=== PATIENT | female | born 1990 | race Caucasian/White ===

== ENCOUNTER 2017-12-08 11:06 | Inpatient (IN) | payer BC, OTHER ==
[~2017-12-08] VITALS: Ht 162.6 cm; Wt 62.8 kg
[2017-12-08] MEDS ORDERED: SODIUM CHLORIDE 0.9% 1,000 ML IV ONE (12:42)
[2017-12-08] MEDS ORDERED: LABETALOL 5MG/ML, 20ML IVPush ONE ×2 (13:00→14:30)
[2017-12-08] MEDS ORDERED: SODIUM CHLORIDE 0.9% 1,000ML IVBOLUS ONE (13:00)
[2017-12-08] MEDS ORDERED: ONDANSETRON 2MG/ML, 2ML IVPush ONE (13:00)
[2017-12-08] MEDS ORDERED: SODIUM CHLORIDE FLUSH 10ML SYR IVF ONE (13:00)
[2017-12-08] MEDS ORDERED: LABETALOL 5MG/ML, 20ML ONE ×3 (13:10→15:12)
[2017-12-08] MEDS ORDERED: ONDANSETRON 2MG/ML, 2ML ONE (13:11)
[2017-12-08 13:14] LABS: BASOPHILS # (AUTO) 0.02 x10^3/uL (0-0.1); BASOPHILS % (AUTO) 0 % (0-1); EOSINOPHILS # (AUTO) 0.01 x10^3/uL (0-0.4); EOSINOPHILS % (AUTO) 0 % (1-7); LYMPHOCYTES % (AUTO) 17 % (22-44); MD NO; MEAN CORPUSCULAR HEMOGLOBIN 29.3 pg (27.0-34.8); MEAN CORPUSCULAR HGB CONC 33.9 g/dL (32.4-35.8); MEAN CORPUSCULAR VOLUME 86.5 fL (80-100); MEAN PLATELET VOLUME 9.4 fL (7.4-10.4); MONOCYTES # (AUTO) 0.52 x10^3/uL (0.2-0.8); MONOCYTES % (AUTO) 7 % (2-9); NEUTROPHILS # (AUTO) 5.43 x10^3/uL (1.8-6.8); NEUTROPHILS % (AUTO) 76 % (42-75); PLATELET COUNT 185 x10^3/uL (130-400); RED BLOOD COUNT 5.05 x10^6/uL (3.82-5.3)
[2017-12-08] MEDS ORDERED: hydrALAzine 20 MG/ML, 1ML ONE ×2 (13:14→15:56)
[2017-12-08 13:21] LABS: ALANINE AMINOTRANSFERASE 103 U/L (12-78); ALBUMIN 4.1 g/dL (3.4-5.0); ANION GAP 13 mmol/L (5-15); CALCIUM 8.9 mg/dL (8.5-10.1); CHLORIDE 107 mmol/L (98-107)
[2017-12-08] MEDS ORDERED: hydrALAzine 20 MG/ML, 1ML IV ONE ×2 (13:30→16:00)
[2017-12-08 13:46] LABS: ALKALINE PHOSPHATASE 61 U/L (45-117); CREATININE 0.81 mg/dL (0.55-1.02); TOTAL PROTEIN 7.8 g/dL (6.4-8.2)
[2017-12-08] MEDS ORDERED: LABETALOL 5MG/ML, 20ML IVPush STA (13:53)
[2017-12-08 15:04] LABS: CULTURE INDICATED? YES; MICROSCOPIC INDICATED
[2017-12-08] MEDS ORDERED: CEFTRIAXONE PMX 1GM/50ML 50 ML ONE (15:56)
[2017-12-08] MEDS ORDERED: CEFTRIAXONE PMX 1GM/50ML 50 ML IV ONE (16:00)
[2017-12-08] MEDS: CEFTRIAXONE PMX 1GM/50ML 50 ML IV SCH (16:30)
[2017-12-08] MEDS ORDERED: NACL IV SCH (17:00)
[2017-12-08] MEDS ORDERED: MVI ADULT IV SCH (17:00)
[2017-12-08] MEDS ORDERED: D5 IV SCH (17:00)
[2017-12-08] MEDS ORDERED: SODIUM CHLORIDE FLUSH 10ML SYR IVF PRN (17:00)
[2017-12-08] MEDS ORDERED: METOPROLOL TARTRATE 25 MG TABLET PO SCH (18:00)
[2017-12-08 18:41] VITALS: BP 183/116
[2017-12-08] MEDS: LABETALOL 5MG/ML, 20ML IVPush PRN (18:46)
[2017-12-08] MEDS ORDERED: THIAMINE 100MG TABLET PO SCH (18:50)
[2017-12-08 19:35] VITALS: BP 164/94
[2017-12-08] MEDS: FOLIC ACID IV SCH (20:05)
[2017-12-08] MEDS: POTASSIUM CHLORIDE 40 MEQ in SODIUM CHLORIDE 0.9% 1,000 ML IV SCH (20:05)
[2017-12-08] MEDS: D5 IV SCH (20:05)
[2017-12-08] MEDS: MVI ADULT IV SCH (20:05)
[2017-12-08] MEDS: NACL IV SCH (20:05)
[2017-12-08] MEDS: PYRIDOXINE 25MG TABLET PO SCH (20:21)
[2017-12-08] MEDS: DOXYLAMINE 25MG TABLET PO SCH (21:00)
[2017-12-08] MEDS: THIAMINE 100MG TABLET PO SCH (21:11)
[2017-12-08 21:14] VITALS: BP 153/87
[2017-12-09] VITALS (11 sets, daily range): BP systolic 148–179; BP diastolic 88–112
[2017-12-09] MEDS: PYRIDOXINE 25MG TABLET PO SCH ×3 (05:13→21:47)
[2017-12-09] MEDS: POTASSIUM CHLORIDE 40 MEQ in SODIUM CHLORIDE 0.9% 1,000 ML IV SCH (05:14)
[2017-12-09 05:53] LABS: CHLORIDE 117 mmol/L (98-107)
[2017-12-09 06:00] LABS: BASOPHILS # (AUTO) 0.02 x10^3/uL (0-0.1); BASOPHILS % (AUTO) 0 % (0-1); EOSINOPHILS % (AUTO) 0 % (1-7); LYMPHOCYTES # (AUTO) 0.95 x10^3/uL (1-3.4); LYMPHOCYTES % (AUTO) 14 % (22-44); MD NO; MEAN CORPUSCULAR HEMOGLOBIN 29.7 pg (27.0-34.8); MEAN CORPUSCULAR HGB CONC 34.4 g/dL (32.4-35.8); MEAN CORPUSCULAR VOLUME 86.1 fL (80-100); MEAN PLATELET VOLUME 9.5 fL (7.4-10.4); MONOCYTES # (AUTO) 0.43 x10^3/uL (0.2-0.8); MONOCYTES % (AUTO) 6 % (2-9); NEUTROPHILS % (AUTO) 80 % (42-75); PLATELET COUNT 141 x10^3/uL (130-400); RED BLOOD COUNT 3.88 x10^6/uL (3.82-5.3); RED CELL DISTRIBUTION WIDTH 13.1 % (9.6-15.2)
[2017-12-09 06:15] LABS: ALANINE AMINOTRANSFERASE 89 U/L (12-78); ALKALINE PHOSPHATASE 46 U/L (45-117); ANION GAP 10 mmol/L (5-15); BILIRUBIN,TOTAL 0.8 mg/dL (0.2-1.0); CALCIUM 7.6 mg/dL (8.5-10.1); CREATININE 0.61 mg/dL (0.55-1.02)
[2017-12-09] MEDS: THIAMINE 100MG TABLET PO SCH (08:23)
[2017-12-09] MEDS: LABETALOL 5MG/ML, 20ML IVPush PRN ×2 (08:24→13:06)
[2017-12-09] MEDS ORDERED: LABETALOL 100 MG TABLET ONE (09:52)
[2017-12-09] MEDS: LABETALOL 100 MG TABLET PO SCH ×2 (09:53→21:47)
[2017-12-09] MEDS: D5%-0.45NACL+KCL 40MEQ 1,000 ML IV SCH (12:38)
[2017-12-09] MEDS ORDERED: LABETALOL 5MG/ML, 20ML IVPush PRN (14:00)
[2017-12-09] MEDS: CEFTRIAXONE PMX 1GM/50ML 50 ML IV SCH (16:38)
[2017-12-09] MEDS: DOXYLAMINE 25MG TABLET PO SCH (21:00)
[2017-12-09] MEDS: D5 IV SCH (22:03)
[2017-12-09] MEDS: MVI ADULT IV SCH (22:03)
[2017-12-09] MEDS: FOLIC ACID IV SCH (22:03)
[2017-12-09] MEDS: NACL IV SCH (22:03)
[2017-12-10] VITALS (12 sets, daily range): BP systolic 96–182; BP diastolic 60–123
[2017-12-10] MEDS: D5%-0.45NACL+KCL 40MEQ 1,000 ML IV SCH ×2 (00:13→07:54)
[2017-12-10] MEDS: PYRIDOXINE 25MG TABLET PO SCH ×3 (04:50→21:16)
[2017-12-10 05:11] LABS: AMPHETAMINE SCREEN, URINE Negative (Negative); BARBITURATE SCREEN, URINE Negative (Negative); BENZODIAZEPINE SCREEN, URINE Negative (Negative); CANNABINOID SCREEN, URINE Negative (Negative); COCAINE SCREEN, URINE Negative (Negative); METHADONE SCREEN, URINE Negative (Negative); OPIATE SCREEN, URINE Negative (Negative)
[2017-12-10 05:56] LABS: ALBUMIN 2.9 g/dL (3.4-5.0); ANION GAP 9 mmol/L (5-15); CALCIUM 7.6 mg/dL (8.5-10.1); CHLORIDE 113 mmol/L (98-107)
[2017-12-10 06:30] LABS: ALANINE AMINOTRANSFERASE 78 U/L (12-78); ALKALINE PHOSPHATASE 45 U/L (45-117); BILIRUBIN,TOTAL 0.5 mg/dL (0.2-1.0); FREE T4 (FREE THYROXINE) 1.24 ng/dL (0.76-1.46); THYROID STIMULATING HORMONE 0.529 mIU/L (0.358-3.740); TOTAL PROTEIN 5.9 g/dL (6.4-8.2)
[2017-12-10] MEDS: LABETALOL 100 MG TABLET PO SCH (07:52)
[2017-12-10] MEDS: THIAMINE 100MG TABLET PO SCH (07:52)
[2017-12-10] MEDS: POTASSIUM CHLORIDE 20 MEQ TAB.ER.PRT PO SCH ×3 (09:27→17:00)
[2017-12-10] MEDS: CEFTRIAXONE PMX 1GM/50ML 50 ML IV SCH (16:35)
[2017-12-10] MEDS ORDERED: LABETALOL 100 MG TABLET ONE (17:38)
[2017-12-10] MEDS: LABETALOL 200 MG TABLET PO SCH (17:38)
[2017-12-10] MEDS: DOXYLAMINE 25MG TABLET PO SCH (21:00)
[2017-12-10] MEDS ORDERED: POTASSIUM CHLORIDE 20 MEQ TAB.ER.PRT PO ONE (23:00)
[2017-12-10] MEDS: D5 IV SCH (23:11)
[2017-12-10] MEDS: FOLIC ACID IV SCH (23:11)
[2017-12-10] MEDS: NACL IV SCH (23:11)
[2017-12-10] MEDS: MVI ADULT IV SCH (23:11)
[2017-12-11 01:28] VITALS: BP 135/87
[2017-12-11] MEDS: PYRIDOXINE 25MG TABLET PO SCH ×2 (06:47→12:47)
[2017-12-11 07:42] VITALS: BP 152/82
[2017-12-11] MEDS ORDERED: LABETALOL 100 MG TABLET ONE (08:32)
[2017-12-11] MEDS: LABETALOL 200 MG TABLET PO SCH (08:40)
[2017-12-11] MEDS: THIAMINE 100MG TABLET PO SCH (08:40)
[2017-12-11 10:37] VITALS: BP 156/96
[2017-12-11 13:05] VITALS: BP 138/98
[2017-12-11] MEDS ORDERED: LABE200T3 PO (15:20)
[2017-12-11] MEDS ORDERED: CLON0.1T12 PO (15:20)
[2017-12-11] MEDS ORDERED: CEFP100T PO (15:33)
== END 2017-12-11 16:14 | disposition home or self-care (01) | DRG 781 ==
LOC: ED 14:39 → EDIP 16:33 → 5SO 18:38
PROVIDERS: ADMIT Hospitalist; ATTEND Hospitalist
DX: O21.1 Hyperemesis gravidarum with metabolic disturbance (principal); O16.2 Unspecified maternal hypertension, second trimester; O23.12 Infections of bladder in pregnancy, second trimester; O99.282 Endocrine, nutritional and metabolic diseases complicating pregnancy, second trimester; E86.0 Dehydration; Z82.49 Family history of ischemic heart disease and other diseases of the circulatory system; Z3A.21 21 weeks gestation of pregnancy
CPT/HCPCS: 36415; 71045; 76700; 76801; 80053; 80074; 80307; 81001; 84439; 84443; 84702; 85025; 87086; 93005; 93306; 93975; 96361; 96365; 96375; 96376; J0696; J2405; J3480; J7042; J0360; J7030

== ENCOUNTER 2018-04-23 17:34 | Inpatient (IN) | payer OTHER ==
[~2018-04-23] VITALS: Ht 162.6 cm; Wt 67.5 kg
[~2018-04-23 17:34] MED LIST: CEFP100T PO; CLON0.1T12 PO; LABE200T3 PO
[2018-04-23] MEDS ORDERED: PREN1TAB60 PO (17:47)
[2018-04-23] MEDS ORDERED: LABE300T PO (17:48)
[2018-04-23 17:49] VITALS: BP 169/112
[2018-04-23] MEDS ORDERED: NIFE20CA PO (17:49)
[2018-04-23] MEDS ORDERED: MAGNESIUM SULF. PMX 20GM/500ML 500 ML IV SCH (18:19)
[2018-04-23] MEDS ORDERED: LACTATED RINGERS 1,000 ML IV PRN (18:19)
[2018-04-23] MEDS ORDERED: MAGNESIUM SULF. PMX 20GM/500ML 500 ML IV ONE (18:19)
[2018-04-23] MEDS ORDERED: LABETALOL 5MG/ML 40ML VIAL IVPush ONE (18:30)
[2018-04-23] MEDS ORDERED: MAGNESIUM SULFATE PMX 4GM/100M 100 ML IVPB ONE (18:30)
[2018-04-23] MEDS ORDERED: LABETALOL 20 MG/4 ML IVPush ONE (18:30)
[2018-04-23] MEDS ORDERED: BETAMETHASONE 6 MG/ML, 5ML IM ONE (18:31)
[2018-04-23] MEDS ORDERED: LABETALOL 5MG/ML, 20ML ONE (18:31)
[2018-04-23 18:40] LABS: BASOPHILS # (AUTO) 0.03 x10^3/uL (0-0.1); BASOPHILS % (AUTO) 0 % (0-1); EOSINOPHILS % (AUTO) 1 % (1-7); LYMPHOCYTES # (AUTO) 1.59 x10^3/uL (1-3.4); LYMPHOCYTES % (AUTO) 16 % (22-44); MD NO; MEAN CORPUSCULAR HGB CONC 33.7 g/dL (32.4-35.8); MEAN CORPUSCULAR VOLUME 89.1 fL (80-100); MEAN PLATELET VOLUME 8.1 fL (7.4-10.4); MONOCYTES # (AUTO) 0.81 x10^3/uL (0.2-0.8); MONOCYTES % (AUTO) 8 % (2-9); NEUTROPHILS # (AUTO) 7.13 x10^3/uL (1.8-6.8); NEUTROPHILS % (AUTO) 74 % (42-75); PLATELET COUNT 221 x10^3/uL (130-400); RED BLOOD COUNT 4.19 x10^6/uL (3.82-5.3); RED CELL DISTRIBUTION WIDTH 13.9 % (9.6-15.2)
[2018-04-23 18:46] LABS: MICROSCOPIC AUTO
[2018-04-23 18:55] LABS: CREATININE,URINE RANDOM 60.7 mg/dL
[2018-04-23] MEDS: BETAMETHASONE 6 MG/ML, 5ML IM SCH (18:55)
[2018-04-23 18:56] LABS: ALANINE AMINOTRANSFERASE 30 U/L (12-78); ALBUMIN 2.8 g/dL (3.4-5.0); ANION GAP 8 mmol/L (5-15); CALCIUM 8.7 mg/dL (8.5-10.1); CHLORIDE 106 mmol/L (98-107); CREATININE 0.73 mg/dL (0.55-1.02)
[2018-04-23 18:57] LABS: BILIRUBIN, DIRECT < 0.1 mg/dL (0.1-0.2)
[2018-04-23 18:58] LABS: ALKALINE PHOSPHATASE 118 U/L (45-117); BILIRUBIN,TOTAL 0.2 mg/dL (0.2-1.0); TOTAL PROTEIN 6.8 g/dL (6.4-8.2)
[2018-04-23] MEDS ORDERED: hydrALAzine 20 MG/ML, 1ML IVPush ONE (19:00)
[2018-04-23] MEDS ORDERED: LABETALOL 5MG/ML, 20ML IVPush ONE ×2 (19:00)
[2018-04-23] MEDS ORDERED: hydrALAzine 20 MG/ML, 1ML ONE (19:46)
[2018-04-23] MEDS ORDERED: POTASSIUM CHLORIDE 10% 20 MEQ/15 ML UDC PO ONE (21:30)
[2018-04-23] MEDS ORDERED: LABETALOL 200 MG TABLET ONE (22:27)
[2018-04-23] MEDS: LABETALOL 200 MG TABLET PO SCH (22:29)
[2018-04-24] MEDS ORDERED: POTASSIUM CHLORIDE 10% 20 MEQ/15 ML UDC PO ONE ×2 (02:00→19:30)
[2018-04-24 05:31] LABS: MEAN CORPUSCULAR HEMOGLOBIN 29.9 pg (27.0-34.8); MEAN CORPUSCULAR HGB CONC 33.2 g/dL (32.4-35.8); MEAN CORPUSCULAR VOLUME 90.2 fL (80-100); MEAN PLATELET VOLUME 8.6 fL (7.4-10.4); PLATELET COUNT 233 x10^3/uL (130-400); RED BLOOD COUNT 3.93 x10^6/uL (3.82-5.3)
[2018-04-24] MEDS ORDERED: LABETALOL 200 MG TABLET ONE ×3 (05:31→22:03)
[2018-04-24 05:38] LABS: CHLORIDE 108 mmol/L (98-107)
[2018-04-24 05:45] LABS: ALANINE AMINOTRANSFERASE 31 U/L (12-78); ALBUMIN 2.8 g/dL (3.4-5.0); ALKALINE PHOSPHATASE 113 U/L (45-117); ANION GAP 9 mmol/L (5-15); BILIRUBIN,TOTAL 0.4 mg/dL (0.2-1.0); CALCIUM 9.2 mg/dL (8.5-10.1); CREATININE 0.79 mg/dL (0.55-1.02); TOTAL PROTEIN 6.6 g/dL (6.4-8.2)
[2018-04-24] MEDS: LABETALOL 200 MG TABLET PO SCH ×3 (06:02→22:06)
[2018-04-24 06:16] LABS: BASOPHILS # (AUTO) 0.01 x10^3/uL (0-0.1); BASOPHILS % (AUTO) 0 % (0-1); EOSINOPHILS % (AUTO) 0 % (1-7); LYMPHOCYTES # (AUTO) 0.99 x10^3/uL (1-3.4); LYMPHOCYTES % (AUTO) 8 % (22-44); MD SCAN; MONOCYTES # (AUTO) 0.15 x10^3/uL (0.2-0.8); MONOCYTES % (AUTO) 1 % (2-9); NEUTROPHILS # (AUTO) 11.58 x10^3/uL (1.8-6.8); NEUTROPHILS % (AUTO) 91 % (42-75)
[2018-04-24] MEDS ORDERED: DOCUSATE 100 MG CAPSULE ONE (08:46)
[2018-04-24] MEDS ORDERED: PRENATAL VIT/IRON/FA 1 EACH TABLET ONE (08:46)
[2018-04-24] MEDS: DOCUSATE 100 MG CAPSULE PO PRN (08:52)
[2018-04-24] MEDS: SODIUM CHLORIDE FLUSH 3ML SYRINGE IVF SCH ×2 (08:52→22:05)
[2018-04-24] MEDS: PRENATAL VIT/IRON/FA 1 EACH TABLET PO SCH (08:52)
[2018-04-24] MEDS: niFEDipine ER 30 MG TABLET.ER PO SCH (08:52)
[2018-04-24] MEDS: BETAMETHASONE 6 MG/ML, 5ML IM SCH (18:48)
[2018-04-24 22:02] LABS: CREATININE CLEARANCE,URINE 115.1 (70.0-140.0)
[2018-04-25 05:43] LABS: CHLORIDE 109 mmol/L (98-107)
[2018-04-25 05:49] LABS: MEAN CORPUSCULAR HEMOGLOBIN 30.2 pg (27.0-34.8); MEAN CORPUSCULAR HGB CONC 33.7 g/dL (32.4-35.8); MEAN CORPUSCULAR VOLUME 89.7 fL (80-100); MEAN PLATELET VOLUME 8.9 fL (7.4-10.4); PLATELET COUNT 240 x10^3/uL (130-400)
[2018-04-25 06:00] LABS: ALANINE AMINOTRANSFERASE 28 U/L (12-78); ALBUMIN 2.5 g/dL (3.4-5.0); ALKALINE PHOSPHATASE 96 U/L (45-117); ANION GAP 11 mmol/L (5-15); BILIRUBIN,TOTAL 0.3 mg/dL (0.2-1.0); CALCIUM 8.3 mg/dL (8.5-10.1); CREATININE 0.77 mg/dL (0.55-1.02)
[2018-04-25] MEDS ORDERED: LABETALOL 200 MG TABLET ONE ×3 (06:10→21:44)
[2018-04-25] MEDS: LABETALOL 200 MG TABLET PO SCH ×3 (06:13→22:01)
[2018-04-25 06:19] LABS: MD YES
[2018-04-25 06:20] LABS: <PLATELET ESTIMATE> ADEQUATE; <PLT MORPHOLOGY> NORMAL PLT MORPH; <RBC MORPHOLOGY> NORMAL; BAND#(MANUAL) 0.38 x10^3/uL; BANDS%(MANUAL) 2 % (0-7); LYMPH#(MANUAL) 0.75 x10^3/uL (1-3.4); LYMPHS% (MANUAL) 4 % (22-44); METAMYELOCYTES# (MANUAL) 0.38 x10^3/uL (0-0); METAMYELOCYTES% (MANUAL) 2 % (0-1); MONOS#(MANUAL) 0.19 x10^3/uL (0.3-2.7); MONOS% (MANUAL) 1 % (2-9); MYELOCYTES# (MANUAL) 0.19 x10^3/uL (0-0); MYELOCYTES% (MANUAL) 1 % (0-0); SEG#(MANUAL) 16.92 x10^3/uL (1.8-6.8); SEGS% (MANUAL) 90 % (42-75)
[2018-04-25 07:39] VITALS: BP 157/91
[2018-04-25] MEDS ORDERED: DOCUSATE 100 MG CAPSULE ONE (08:50)
[2018-04-25] MEDS ORDERED: PRENATAL VIT/IRON/FA 1 EACH TABLET ONE (08:50)
[2018-04-25] MEDS: SODIUM CHLORIDE FLUSH 3ML SYRINGE IVF SCH ×2 (09:00→21:37)
[2018-04-25] MEDS: niFEDipine ER 30 MG TABLET.ER PO SCH (09:22)
[2018-04-25] MEDS: DOCUSATE 100 MG CAPSULE PO PRN (09:22)
[2018-04-25] MEDS: PRENATAL VIT/IRON/FA 1 EACH TABLET PO SCH (09:22)
[2018-04-25] MEDS ORDERED: INSULIN NPH HUMAN 100 UNIT/ML, 3ML VIAL SQ-INSULIN ONE (22:00)
[2018-04-26] MEDS ORDERED: LABETALOL 200 MG TABLET ONE ×3 (05:50→21:51)
[2018-04-26] MEDS: LABETALOL 200 MG TABLET PO SCH ×3 (06:16→21:52)
[2018-04-26] MEDS ORDERED: niFEDipine ER 60 MG TABLET.ER PO ONE (08:59)
[2018-04-26] MEDS ORDERED: niFEDipine ER 60 MG TABLET.ER PO SCH (09:00)
[2018-04-26] MEDS ORDERED: PRENATAL VIT/IRON/FA 1 EACH TABLET ONE (09:03)
[2018-04-26] MEDS ORDERED: DOCUSATE 100 MG CAPSULE ONE (09:03)
[2018-04-26] MEDS: SODIUM CHLORIDE FLUSH 3ML SYRINGE IVF SCH ×2 (09:07→21:53)
[2018-04-26] MEDS: PRENATAL VIT/IRON/FA 1 EACH TABLET PO SCH (09:07)
[2018-04-26] MEDS: DOCUSATE 100 MG CAPSULE PO PRN (09:07)
[2018-04-26] MEDS: LACTATED RINGERS 1,000 ML IV SCH (16:57)
[2018-04-26 22:51] VITALS: BP 173/102
[2018-04-26 23:30] VITALS: BP 129/67
[2018-04-27] MEDS: LACTATED RINGERS 1,000 ML IV SCH (01:04)
[2018-04-27] MEDS: LABETALOL 200 MG TABLET PO SCH ×2 (05:38→14:00)
[2018-04-27 05:52] LABS: BASOPHILS # (AUTO) 0.02 x10^3/uL (0-0.1); BASOPHILS % (AUTO) 0 % (0-1); EOSINOPHILS # (AUTO) 0.02 x10^3/uL (0-0.4); EOSINOPHILS % (AUTO) 0 % (1-7); LYMPHOCYTES # (AUTO) 1.35 x10^3/uL (1-3.4); LYMPHOCYTES % (AUTO) 13 % (22-44); MD NO; MEAN CORPUSCULAR HEMOGLOBIN 30.1 pg (27.0-34.8); MEAN CORPUSCULAR HGB CONC 33.7 g/dL (32.4-35.8); MEAN CORPUSCULAR VOLUME 89.4 fL (80-100); MEAN PLATELET VOLUME 8.1 fL (7.4-10.4); MONOCYTES # (AUTO) 0.75 x10^3/uL (0.2-0.8); MONOCYTES % (AUTO) 7 % (2-9); NEUTROPHILS # (AUTO) 8.41 x10^3/uL (1.8-6.8); NEUTROPHILS % (AUTO) 80 % (42-75); PLATELET COUNT 164 x10^3/uL (130-400); RED BLOOD COUNT 3.48 x10^6/uL (3.82-5.3); RED CELL DISTRIBUTION WIDTH 13.9 % (9.6-15.2)
[2018-04-27 06:03] LABS: ALBUMIN 2.2 g/dL (3.4-5.0); ANION GAP 7 mmol/L (5-15); CALCIUM 7.6 mg/dL (8.5-10.1); CHLORIDE 108 mmol/L (98-107)
[2018-04-27 06:07] LABS: ALANINE AMINOTRANSFERASE 30 U/L (12-78); ALKALINE PHOSPHATASE 87 U/L (45-117); BILIRUBIN,TOTAL 0.3 mg/dL (0.2-1.0); CREATININE 0.64 mg/dL (0.55-1.02); TOTAL PROTEIN 5.3 g/dL (6.4-8.2)
[2018-04-27] MEDS ORDERED: hydrALAzine 20 MG/ML, 1ML ONE ×2 (07:12→08:11)
[2018-04-27] MEDS ORDERED: hydrALAzine 20 MG/ML, 1ML IV ONE ×2 (07:30→08:30)
[2018-04-27] MEDS ORDERED: SODIUM CITRATE/CITRIC ACID 30 ML UDC ONE (07:33)
[2018-04-27] MEDS ORDERED: METOCLOPRAMIDE 5 MG/ML, 2ML ONE (07:33)
[2018-04-27] MEDS ORDERED: MAGNESIUM SULF. PMX 20GM/500ML 500 ML IV SCH (08:11)
[2018-04-27] MEDS ORDERED: OXYTOCIN 30U/ 0.9% NaCL 500ML 500 ML IV SCH ×2 (08:11→12:09)
[2018-04-27] MEDS ORDERED: LACTATED RINGERS 1,000 ML IV SCH ×4 (08:11→12:09)
[2018-04-27] MEDS ORDERED: LACTATED RINGERS 1,000 ML IVBOLUS ONE (08:30)
[2018-04-27] MEDS ORDERED: MAGNESIUM SULFATE PMX 4GM/100M 100 ML IVPB ONE (08:30)
[2018-04-27] MEDS ORDERED: SODIUM CITRATE/CITRIC ACID 30 ML UDC PO ONE ×2 (08:30)
[2018-04-27] MEDS ORDERED: METOCLOPRAMIDE 5 MG/ML, 2ML IV ONE (08:30)
[2018-04-27] MEDS ORDERED: METOCLOPRAMIDE 5 MG/ML, 2ML IVPush ONE (08:30)
[2018-04-27] MEDS ORDERED: MAGNESIUM SULFATE PMX 2GM/50ML 50 ML IVPB ONE (08:30)
[2018-04-27] MEDS ORDERED: NEWBORN KIT ONE (08:31)
[2018-04-27] MEDS ORDERED: niFEDipine ER 60 MG TABLET.ER PO ONE (08:59)
[2018-04-27] MEDS ORDERED: niFEDipine ER 30 MG TABLET.ER ONE (08:59)
[2018-04-27] MEDS ORDERED: niFEDipine ER 60 MG TABLET.ER PO SCH (09:00)
[2018-04-27] MEDS: PRENATAL VIT/IRON/FA 1 EACH TABLET PO SCH (09:00)
[2018-04-27] MEDS ORDERED: OXYTOCIN 30U/ 0.9% NaCL 500ML 500 ML ONE (09:24)
[2018-04-27] MEDS ORDERED: morphine SULFATE/PF 0.5 MG/ML, 10ML ONE (10:06)
[2018-04-27] MEDS ORDERED: PHENYLEPHRINE 10 MG/ML ONE (11:28)
[2018-04-27] MEDS ORDERED: EPHEDRINE 50 MG/ML, 1ML ONE (11:28)
[2018-04-27] MEDS ORDERED: OXYTOCIN 10 UNITS/ML, 1ML ONE (11:28)
[2018-04-27] MEDS ORDERED: CEFAZOLIN 1,000 MG ONE (11:28)
[2018-04-27] MEDS ORDERED: WATER-INJECTION,STERILE 10 ML IV ONE (11:28)
[2018-04-27] MEDS ORDERED: ONDANSETRON 2MG/ML, 2ML ONE (11:28)
[2018-04-27] MEDS ORDERED: MIDAZOLAM 1 MG/ML, 2ML ONE (11:38)
[2018-04-27] MEDS ORDERED: KETOROLAC 30 MG/1 ML ONE (12:01)
[2018-04-27] MEDS ORDERED: OXYcodone 5 MG/5 ML ORAL.SOL UDC ONE (12:23)
[2018-04-27] MEDS ORDERED: MISOPROSTOL 200 MCG TABLET PR PRN (12:30)
[2018-04-27] MEDS ORDERED: ONDANSETRON 2MG/ML, 2ML IV PRN (12:30)
[2018-04-27] MEDS ORDERED: BISACODYL 10 MG SUPP PR PRN (12:30)
[2018-04-27] MEDS ORDERED: morphine SULFATE 10 MG/ML, 1ML IVPush PRN ×2 (12:30)
[2018-04-27] MEDS ORDERED: CALCIUM CARBONATE 500 MG TAB.CHEW PO PRN (12:30)
[2018-04-27] MEDS ORDERED: SIMETHICONE 80 MG CHEW TAB PO PRN (12:30)
[2018-04-27] MEDS ORDERED: OXYcodone 5 MG/5 ML ORAL.SOL UDC PO PRN ×2 (12:30)
[2018-04-27] MEDS ORDERED: MAGNESIUM SULF. PMX 20GM/500ML 500 ML IV ONE (13:08)
[2018-04-27] MEDS ORDERED: ACETAMINOPHEN 325 MG TABLET ONE ×2 (15:09→20:56)
[2018-04-27] MEDS: ACETAMINOPHEN 325 MG TABLET PO SCH ×2 (15:15→19:00)
[2018-04-27] MEDS ORDERED: OXYcodone IR 5MG TABLET ONE ×2 (17:01→20:52)
[2018-04-27] MEDS: OXYcodone IR 5MG TABLET PO PRN ×2 (17:05→21:00)
[2018-04-27 19:21] LABS: BASOPHILS % (AUTO) 0 % (0-1); EOSINOPHILS # (AUTO) 0.02 x10^3/uL (0-0.4); EOSINOPHILS % (AUTO) 0 % (1-7); LYMPHOCYTES # (AUTO) 1.11 x10^3/uL (1-3.4); LYMPHOCYTES % (AUTO) 9 % (22-44); MD NO; MEAN CORPUSCULAR HEMOGLOBIN 30.1 pg (27.0-34.8); MEAN CORPUSCULAR HGB CONC 33.5 g/dL (32.4-35.8); MEAN CORPUSCULAR VOLUME 89.9 fL (80-100); MEAN PLATELET VOLUME 8.2 fL (7.4-10.4); MONOCYTES # (AUTO) 0.77 x10^3/uL (0.2-0.8); MONOCYTES % (AUTO) 6 % (2-9); NEUTROPHILS # (AUTO) 10.63 x10^3/uL (1.8-6.8); NEUTROPHILS % (AUTO) 85 % (42-75); PLATELET COUNT 152 x10^3/uL (130-400); RED BLOOD COUNT 3.56 x10^6/uL (3.82-5.3)
[2018-04-28] MEDS ORDERED: OXYcodone IR 5MG TABLET ONE ×3 (01:30→11:58)
[2018-04-28] MEDS ORDERED: MAGNESIUM SULF. PMX 20GM/500ML 500 ML IV ONE (01:30)
[2018-04-28] MEDS: OXYcodone IR 5MG TABLET PO PRN ×3 (01:40→12:00)
[2018-04-28] MEDS ORDERED: LABETALOL 100 MG TABLET ONE ×3 (04:42→16:54)
[2018-04-28] MEDS ORDERED: ACETAMINOPHEN 325 MG TABLET ONE ×2 (05:00→11:58)
[2018-04-28] MEDS: ACETAMINOPHEN 325 MG TABLET PO SCH ×3 (05:03→18:30)
[2018-04-28] MEDS ORDERED: LABETALOL 300 MG TABLET PO SCH (06:00)
[2018-04-28 06:24] LABS: BASOPHILS # (AUTO) 0.03 x10^3/uL (0-0.1); BASOPHILS % (AUTO) 0 % (0-1); EOSINOPHILS # (AUTO) 0.02 x10^3/uL (0-0.4); EOSINOPHILS % (AUTO) 0 % (1-7); LYMPHOCYTES # (AUTO) 1.06 x10^3/uL (1-3.4); LYMPHOCYTES % (AUTO) 10 % (22-44); MD NO; MEAN CORPUSCULAR HEMOGLOBIN 30.8 pg (27.0-34.8); MEAN CORPUSCULAR HGB CONC 34.2 g/dL (32.4-35.8); MEAN PLATELET VOLUME 8.6 fL (7.4-10.4); MONOCYTES # (AUTO) 0.61 x10^3/uL (0.2-0.8); MONOCYTES % (AUTO) 6 % (2-9); NEUTROPHILS # (AUTO) 9.02 x10^3/uL (1.8-6.8); NEUTROPHILS % (AUTO) 84 % (42-75); PLATELET COUNT 163 x10^3/uL (130-400); RED BLOOD COUNT 3.43 x10^6/uL (3.82-5.3); RED CELL DISTRIBUTION WIDTH 13.9 % (9.6-15.2)
[2018-04-28 06:30] LABS: CHLORIDE 106 mmol/L (98-107)
[2018-04-28 06:31] LABS: ALANINE AMINOTRANSFERASE 24 U/L (12-78); ANION GAP 7 mmol/L (5-15); CALCIUM 6.2 mg/dL (8.5-10.1)
[2018-04-28 06:33] LABS: ALKALINE PHOSPHATASE 84 U/L (45-117); BILIRUBIN,TOTAL 0.1 mg/dL (0.2-1.0); CREATININE 0.48 mg/dL (0.55-1.02)
[2018-04-28] MEDS ORDERED: PRENATAL VIT/IRON/FA 1 EACH TABLET ONE (08:19)
[2018-04-28] MEDS ORDERED: niFEDipine ER 30 MG TABLET.ER ONE ×2 (08:19→19:07)
[2018-04-28] MEDS: PRENATAL VIT/IRON/FA 1 EACH TABLET PO SCH (08:58)
[2018-04-28] MEDS: niFEDipine ER 30 MG TABLET.ER PO SCH ×2 (08:58→19:10)
[2018-04-28] MEDS ORDERED: hydrALAzine 20 MG/ML, 1ML ONE (12:25)
[2018-04-28] MEDS ORDERED: hydrALAzine 20 MG/ML, 1ML IV ONE (12:30)
[2018-04-28] MEDS ORDERED: OXYcodone/APAP 5/325MG TABLET ONE ×3 (15:43→20:29)
[2018-04-28] MEDS: OXYcodone/APAP 5/325MG TABLET PO PRN ×2 (15:50→20:34)
[2018-04-28] MEDS ORDERED: IBUPROFEN 600 MG TABLET ONE (20:25)
[2018-04-28] MEDS ORDERED: DOCUSATE 100 MG CAPSULE ONE (20:36)
[2018-04-28] MEDS: DOCUSATE 100 MG CAPSULE PO PRN (20:37)
[2018-04-28] MEDS ORDERED: morphine SULFATE 10 MG/ML, 1ML ONE (21:28)
[2018-04-28] MEDS ORDERED: KETOROLAC 30 MG/1 ML ONE (21:28)
[2018-04-28] MEDS ORDERED: KETOROLAC 30 MG/1 ML IM SCH (21:30)
[2018-04-29] MEDS ORDERED: OXYcodone/APAP 5/325MG TABLET ONE ×2 (00:25→05:16)
[2018-04-29] MEDS: ACETAMINOPHEN 325 MG TABLET PO SCH ×4 (00:30→20:14)
[2018-04-29] MEDS ORDERED: ACETAMINOPHEN 325 MG TABLET ONE (05:16)
[2018-04-29] MEDS: OXYcodone/APAP 5/325MG TABLET PO PRN (05:18)
[2018-04-29] MEDS ORDERED: LABETALOL 200 MG TABLET ONE (07:57)
[2018-04-29] MEDS ORDERED: PRENATAL VIT/IRON/FA 1 EACH TABLET ONE (07:58)
[2018-04-29] MEDS ORDERED: DOCUSATE 100 MG CAPSULE ONE (07:58)
[2018-04-29] MEDS ORDERED: LABETALOL 300 MG TABLET PO SCH (08:00)
[2018-04-29] MEDS: PRENATAL VIT/IRON/FA 1 EACH TABLET PO SCH (08:09)
[2018-04-29 08:10] VITALS: BP 138/86
[2018-04-29] MEDS: DOCUSATE 100 MG CAPSULE PO PRN (08:10)
[2018-04-29] MEDS: LABETALOL 200 MG TABLET PO SCH ×2 (08:10→12:40)
[2018-04-29] MEDS ORDERED: niFEDipine ER 60 MG TABLET.ER PO ONE (09:07)
[2018-04-29] MEDS: niFEDipine ER 30 MG TABLET.ER PO SCH (09:13)
[2018-04-29] MEDS ORDERED: OXYcodone IR 5MG TABLET ONE (09:33)
[2018-04-29] MEDS: OXYcodone IR 5MG TABLET PO PRN ×4 (09:36→21:30)
[2018-04-29 12:33] VITALS: BP 123/67
[2018-04-29] MEDS ORDERED: LABETALOL 100 MG TABLET PO SCH (17:00)
[2018-04-29 17:25] VITALS: BP 126/76
[2018-04-29 20:00] VITALS: BP 140/82
[2018-04-30] VITALS (7 sets, daily range): BP systolic 127–192; BP diastolic 78–119
[2018-04-30] MEDS: ACETAMINOPHEN 325 MG TABLET PO SCH ×4 (02:01→21:31)
[2018-04-30] MEDS: OXYcodone IR 5MG TABLET PO PRN ×4 (02:01→18:43)
[2018-04-30] MEDS: LABETALOL 200 MG TABLET PO SCH ×3 (06:30→21:32)
[2018-04-30] MEDS: PRENATAL VIT/IRON/FA 1 EACH TABLET PO SCH (07:49)
[2018-04-30] MEDS: DOCUSATE 100 MG CAPSULE PO PRN ×2 (07:49→21:31)
[2018-04-30] MEDS: niFEDipine ER 30 MG TABLET.ER PO SCH (08:23)
[2018-05-01] VITALS (9 sets, daily range): BP systolic 136–182; BP diastolic 81–114
[2018-05-01] MEDS: OXYcodone IR 5MG TABLET PO PRN ×6 (00:37→22:04)
[2018-05-01] MEDS ORDERED: LABETALOL 100 MG TABLET ONE ×2 (02:22→21:58)
[2018-05-01] MEDS ORDERED: LABETALOL 100 MG TABLET PO SCH ×2 (02:30→06:30)
[2018-05-01] MEDS: ACETAMINOPHEN 325 MG TABLET PO SCH ×3 (03:46→15:32)
[2018-05-01] MEDS: LABETALOL 200 MG TABLET PO SCH (05:57)
[2018-05-01] MEDS: niFEDipine ER 30 MG TABLET.ER PO SCH (07:18)
[2018-05-01] MEDS: PRENATAL VIT/IRON/FA 1 EACH TABLET PO SCH (07:18)
[2018-05-01] MEDS: DOCUSATE 100 MG CAPSULE PO PRN ×2 (07:18→22:03)
[2018-05-01] MEDS: LABETALOL 100 MG TABLET PO SCH ×2 (14:13→22:03)
[2018-05-01 14:35] LABS: BASOPHILS # (AUTO) 0.04 x10^3/uL (0-0.1); BASOPHILS % (AUTO) 0 % (0-1); EOSINOPHILS # (AUTO) 0.16 x10^3/uL (0-0.4); EOSINOPHILS % (AUTO) 2 % (1-7); LYMPHOCYTES # (AUTO) 1.49 x10^3/uL (1-3.4); LYMPHOCYTES % (AUTO) 13 % (22-44); MD NO; MEAN CORPUSCULAR HEMOGLOBIN 29.9 pg (27.0-34.8); MEAN CORPUSCULAR HGB CONC 33.2 g/dL (32.4-35.8); MEAN CORPUSCULAR VOLUME 89.8 fL (80-100); MEAN PLATELET VOLUME 7.5 fL (7.4-10.4); MONOCYTES # (AUTO) 0.75 x10^3/uL (0.2-0.8); MONOCYTES % (AUTO) 7 % (2-9); NEUTROPHILS # (AUTO) 8.69 x10^3/uL (1.8-6.8); NEUTROPHILS % (AUTO) 78 % (42-75); PLATELET COUNT 240 x10^3/uL (130-400); RED CELL DISTRIBUTION WIDTH 14.7 % (9.6-15.2)
[2018-05-01 14:46] LABS: ALANINE AMINOTRANSFERASE 100 U/L (12-78); ALBUMIN 2.4 g/dL (3.4-5.0); ANION GAP 8 mmol/L (5-15); CALCIUM 8.4 mg/dL (8.5-10.1); CHLORIDE 103 mmol/L (98-107)
[2018-05-01 14:48] LABS: ALKALINE PHOSPHATASE 96 U/L (45-117); BILIRUBIN,TOTAL 0.2 mg/dL (0.2-1.0); TOTAL PROTEIN 6.1 g/dL (6.4-8.2)
[2018-05-01] MEDS ORDERED: MAGNESIUM SULF. PMX 20GM/500ML 500 ML IV ONE (15:59)
[2018-05-01] MEDS ORDERED: MAGNESIUM SULFATE PMX 2GM/50ML 50 ML IVPB ONE (16:00)
[2018-05-01] MEDS ORDERED: MAGNESIUM SULFATE PMX 4GM/100M 100 ML IVPB ONE (16:00)
[2018-05-01] MEDS ORDERED: CALCIUM GLUCONATE 4.6 MEQ/10 ML IV PRN (16:00)
[2018-05-01] MEDS: LACTATED RINGERS 1,000 ML IV PRN (16:27)
[2018-05-01] MEDS: MAGNESIUM SULF. PMX 20GM/500ML 500 ML IV SCH (16:49)
[2018-05-01] MEDS ORDERED: OXYcodone IR 5MG TABLET ONE ×2 (17:14→22:00)
[2018-05-01] MEDS ORDERED: LABETALOL 200 MG TABLET ONE (21:58)
[2018-05-01] MEDS ORDERED: DOCUSATE 100 MG CAPSULE ONE (21:59)
[2018-05-01] MEDS ORDERED: hydrALAzine 20 MG/ML, 1ML IVPush ONE ×2 (22:00)
[2018-05-01 22:30] LABS: BASOPHILS # (AUTO) 0.04 x10^3/uL (0-0.1); BASOPHILS % (AUTO) 0 % (0-1); EOSINOPHILS # (AUTO) 0.17 x10^3/uL (0-0.4); EOSINOPHILS % (AUTO) 2 % (1-7); LYMPHOCYTES # (AUTO) 1.67 x10^3/uL (1-3.4); LYMPHOCYTES % (AUTO) 15 % (22-44); MD NO; MEAN CORPUSCULAR HEMOGLOBIN 30.5 pg (27.0-34.8); MEAN CORPUSCULAR HGB CONC 33.6 g/dL (32.4-35.8); MEAN CORPUSCULAR VOLUME 90.9 fL (80-100); MEAN PLATELET VOLUME 7.2 fL (7.4-10.4); MONOCYTES # (AUTO) 0.73 x10^3/uL (0.2-0.8); MONOCYTES % (AUTO) 6 % (2-9); NEUTROPHILS # (AUTO) 8.78 x10^3/uL (1.8-6.8); NEUTROPHILS % (AUTO) 77 % (42-75); PLATELET COUNT 225 x10^3/uL (130-400); RED BLOOD COUNT 3.45 x10^6/uL (3.82-5.3); RED CELL DISTRIBUTION WIDTH 14.3 % (9.6-15.2)
[2018-05-01 22:43] LABS: ALANINE AMINOTRANSFERASE 85 U/L (12-78); ALBUMIN 2.4 g/dL (3.4-5.0); ANION GAP 7 mmol/L (5-15); CALCIUM 7.5 mg/dL (8.5-10.1); CHLORIDE 103 mmol/L (98-107)
[2018-05-01 22:45] LABS: ALKALINE PHOSPHATASE 100 U/L (45-117); BILIRUBIN,TOTAL 0.1 mg/dL (0.2-1.0)
[2018-05-02] VITALS (9 sets, daily range): BP systolic 117–148; BP diastolic 68–94
[2018-05-02] MEDS ORDERED: MAGNESIUM SULF. PMX 20GM/500ML 500 ML IV ONE ×2 (00:53→12:59)
[2018-05-02] MEDS: MAGNESIUM SULF. PMX 20GM/500ML 500 ML IV SCH (00:56)
[2018-05-02] MEDS ORDERED: LABETALOL 100 MG TABLET ONE ×2 (04:03→13:53)
[2018-05-02] MEDS ORDERED: LABETALOL 200 MG TABLET ONE (04:03)
[2018-05-02] MEDS ORDERED: OXYcodone IR 5MG TABLET ONE ×3 (04:03→16:34)
[2018-05-02] MEDS: LACTATED RINGERS 1,000 ML IV PRN (05:43)
[2018-05-02] MEDS: OXYcodone IR 5MG TABLET PO PRN ×4 (05:47→22:19)
[2018-05-02] MEDS: LABETALOL 100 MG TABLET PO SCH ×3 (05:47→22:19)
[2018-05-02] MEDS ORDERED: niFEDipine ER 60 MG TABLET.ER PO ONE (08:42)
[2018-05-02] MEDS ORDERED: PRENATAL VIT/IRON/FA 1 EACH TABLET ONE (08:42)
[2018-05-02] MEDS ORDERED: DOCUSATE 100 MG CAPSULE ONE (08:42)
[2018-05-02] MEDS: PRENATAL VIT/IRON/FA 1 EACH TABLET PO SCH (08:44)
[2018-05-02] MEDS: DOCUSATE 100 MG CAPSULE PO PRN ×2 (08:44→22:19)
[2018-05-02] MEDS: niFEDipine ER 30 MG TABLET.ER PO SCH (08:45)
[2018-05-03] VITALS (10 sets, daily range): BP systolic 126–164; BP diastolic 78–108
[2018-05-03] MEDS: OXYcodone IR 5MG TABLET PO PRN ×3 (02:15→19:54)
[2018-05-03] MEDS: LABETALOL 100 MG TABLET PO SCH ×3 (05:42→22:01)
[2018-05-03 05:52] LABS: BASOPHILS # (AUTO) 0.05 x10^3/uL (0-0.1); BASOPHILS % (AUTO) 1 % (0-1); EOSINOPHILS % (AUTO) 2 % (1-7); LYMPHOCYTES # (AUTO) 1.87 x10^3/uL (1-3.4); LYMPHOCYTES % (AUTO) 18 % (22-44); MD NO; MEAN CORPUSCULAR HEMOGLOBIN 30.8 pg (27.0-34.8); MEAN CORPUSCULAR HGB CONC 33.8 g/dL (32.4-35.8); MEAN CORPUSCULAR VOLUME 91.1 fL (80-100); MEAN PLATELET VOLUME 7.4 fL (7.4-10.4); MONOCYTES # (AUTO) 0.63 x10^3/uL (0.2-0.8); MONOCYTES % (AUTO) 6 % (2-9); NEUTROPHILS # (AUTO) 7.41 x10^3/uL (1.8-6.8); NEUTROPHILS % (AUTO) 73 % (42-75); PLATELET COUNT 264 x10^3/uL (130-400); RED BLOOD COUNT 3.29 x10^6/uL (3.82-5.3); RED CELL DISTRIBUTION WIDTH 14.2 % (9.6-15.2)
[2018-05-03 06:03] LABS: ALBUMIN 2.3 g/dL (3.4-5.0); CALCIUM 7.4 mg/dL (8.5-10.1); CHLORIDE 104 mmol/L (98-107)
[2018-05-03 06:10] LABS: ALANINE AMINOTRANSFERASE 62 U/L (12-78); ALKALINE PHOSPHATASE 101 U/L (45-117); ANION GAP 8 mmol/L (5-15); BILIRUBIN,TOTAL 0.4 mg/dL (0.2-1.0); CREATININE 0.75 mg/dL (0.55-1.02); TOTAL PROTEIN 5.8 g/dL (6.4-8.2)
[2018-05-03 06:11] LABS: BILIRUBIN, DIRECT < 0.1 mg/dL (0.1-0.2)
[2018-05-03] MEDS ORDERED: niFEDipine ER 60 MG TABLET.ER PO ONE (07:30)
[2018-05-03] MEDS ORDERED: niFEDipine ER 30 MG TABLET.ER ONE (07:30)
[2018-05-03] MEDS: niFEDipine ER 90 MG TAB.ER.24 PO SCH ×2 (07:40→09:00)
[2018-05-03] MEDS: PRENATAL VIT/IRON/FA 1 EACH TABLET PO SCH (09:11)
[2018-05-03] MEDS: DOCUSATE 100 MG CAPSULE PO PRN ×2 (09:11→19:54)
[2018-05-04] VITALS (8 sets, daily range): BP systolic 122–137; BP diastolic 70–85
[2018-05-04] MEDS: LABETALOL 100 MG TABLET PO SCH ×3 (06:06→21:52)
[2018-05-04] MEDS: OXYcodone IR 5MG TABLET PO PRN ×3 (06:13→21:52)
[2018-05-04] MEDS: niFEDipine ER 90 MG TAB.ER.24 PO SCH (08:35)
[2018-05-04] MEDS: PRENATAL VIT/IRON/FA 1 EACH TABLET PO SCH (08:35)
[2018-05-04] MEDS: DOCUSATE 100 MG CAPSULE PO PRN (08:35)
[2018-05-05 00:19] VITALS: BP 135/83
[2018-05-05 04:22] VITALS: BP 136/85
[2018-05-05 06:00] VITALS: BP 150/95
[2018-05-05] MEDS: LABETALOL 100 MG TABLET PO SCH (06:01)
[2018-05-05 08:15] VITALS: BP 138/88
[2018-05-05] MEDS: niFEDipine ER 90 MG TAB.ER.24 PO SCH (08:54)
[2018-05-05] MEDS: PRENATAL VIT/IRON/FA 1 EACH TABLET PO SCH (08:54)
[2018-05-05] MEDS: DOCUSATE 100 MG CAPSULE PO PRN (08:54)
[2018-05-05] MEDS ORDERED: OXYC-302 PO (10:21)
[2018-05-05] MEDS ORDERED: IBUP-1222 PO (10:21)
[2018-05-05] MEDS ORDERED: NIFE90TA PO (10:22)
[2018-05-05] MEDS ORDERED: LABE100T3 PO ×2 (10:22→10:23)
== END 2018-05-05 13:14 | disposition home or self-care (01) | DRG 765 ==
LOC: LDOP 17:34 → LDIP 18:14 → 2NE 04-27 14:00 → 2NW 04-29 10:21 → 2NE 05-01 16:07 → 2NW 05-02 16:39
PROVIDERS: ADMIT Obstetrics & Gynecology; ATTEND Obstetrics & Gynecology
PROC: 10D00Z1 Extraction of Products of Conception, Low, Open Approach (ICD-10-PCS; principal; 2018-04-27)
DX: O11.4 Pre-existing hypertension with pre-eclampsia, complicating childbirth (principal); O36.5930 Maternal care for other known or suspected poor fetal growth, third trimester, not applicable or unspecified; Z37.0 Single live birth; O32.1XX0 Maternal care for breech presentation, not applicable or unspecified; O34.13 Maternal care for benign tumor of corpus uteri, third trimester; D25.2 Subserosal leiomyoma of uterus; O36.8130 Decreased fetal movements, third trimester, not applicable or unspecified; Z3A.29 29 weeks gestation of pregnancy; Z80.3 Family history of malignant neoplasm of breast; Z82.49 Family history of ischemic heart disease and other diseases of the circulatory system; Z83.3 Family history of diabetes mellitus; O10.92 Unspecified pre-existing hypertension complicating childbirth
CPT/HCPCS: 36415; 76819; 80053; 81001; 81050; 82248; 82570; 82575; 82803; 82962; 83735; 83835; 84156; 84550; 84585; 85025; 86850; 86900; 88305; 88307; J0690; J0702; J1815; J1885; J2250; J2274; J2405; J0360; J2270; J2370; J2590; J2765; J3475; J7120

== ENCOUNTER 2018-07-13 21:12 | Emergency (ER) | payer OTHER ==
[~2018-07-13] VITALS: Ht 162.6 cm; Wt 61.3 kg
[~2018-07-13 21:12] MED LIST changes: +IBUP-1222 PO; +LABE100T6 PO; -LABE200T3 PO; +LABE200T6 PO; +LABE300T2 PO; +NIFE20CA PO; +NIFE90TA PO; +OXYC-302 PO; +PREN1TAB60 PO
[2018-07-13] MEDS ORDERED: LABETALOL 5MG/ML, 20ML IVPush STA (22:30)
[2018-07-13 23:11] LABS: BASOPHILS # (AUTO) 0.05 x10^3/uL (0-0.1); BASOPHILS % (AUTO) 1 % (0-1); EOSINOPHILS # (AUTO) 0.13 x10^3/uL (0-0.4); EOSINOPHILS % (AUTO) 2 % (1-7); LYMPHOCYTES # (AUTO) 2.09 x10^3/uL (1-3.4); LYMPHOCYTES % (AUTO) 36 % (22-44); MD NO; MEAN CORPUSCULAR HEMOGLOBIN 28.5 pg (27.0-34.8); MEAN CORPUSCULAR HGB CONC 33.8 g/dL (32.4-35.8); MEAN CORPUSCULAR VOLUME 84.3 fL (80-100); MEAN PLATELET VOLUME 8.6 fL (7.4-10.4); MONOCYTES # (AUTO) 0.47 x10^3/uL (0.2-0.8); MONOCYTES % (AUTO) 8 % (2-9); NEUTROPHILS # (AUTO) 3.11 x10^3/uL (1.8-6.8); NEUTROPHILS % (AUTO) 53 % (42-75); PLATELET COUNT 252 x10^3/uL (130-400); RED BLOOD COUNT 4.31 x10^6/uL (3.82-5.3); RED CELL DISTRIBUTION WIDTH 13.3 % (9.6-15.2)
[2018-07-13 23:22] LABS: ALBUMIN 3.5 g/dL (3.4-5.0); ANION GAP 6 mmol/L (5-15); CALCIUM 8.9 mg/dL (8.5-10.1); CHLORIDE 104 mmol/L (98-107)
[2018-07-13] MEDS ORDERED: LABETALOL 5MG/ML, 20ML ONE (23:22)
[2018-07-13 23:26] LABS: TROPONIN I < 0.015 ng/mL (0.000-0.045)
[2018-07-13] MEDS ORDERED: POTASSIUM CHLORIDE 20 MEQ TAB.ER.PRT ONE (23:56)
[2018-07-14] MEDS ORDERED: POTASSIUM CHLORIDE 20 MEQ TAB.ER.PRT PO ONE ×2
[2018-07-14 00:28] VITALS: BP 170/111
== END 2018-07-14 00:49 | disposition home or self-care (01) ==
LOC: ED 23:59
DX: I10 Essential (primary) hypertension (principal); E87.6 Hypokalemia
CPT/HCPCS: 36415; 71045; 80048; 82040; 84484; 84703; 85025; 93005; 96374

== ENCOUNTER 2019-03-13 22:33 | Emergency (ER) | payer OTHER ==
[~2019-03-13] VITALS: Ht 162.6 cm; Wt 66.5 kg
[2019-03-13] MEDS ORDERED: LABE300T2 PO (22:39)
--- NOTE | 2019-03-13 23:09 | NUR ---
INITIAL CONTACT WITH PT. PT HERE FOR HI BP. ALSO HAD ONSET OF L ARM PAIN AND R LEG PAIN X 2 HOURS, PAIN INTERMITTENT ACHE. PT STATES HAS BEEN COMPLIANT WITH LABETOLOL BUT RAN OUT OF HER PROCARDIA X 2 WEEKS AGO. IS SCHEDULED TO SEE PMD. DENIES DORAN, BLURRED VISION, CP.
[2019-03-13] MEDS ORDERED: POTA20TA14 PO (23:15)
[2019-03-13] MEDS ORDERED: AMLODIPINE 5 MG TABLET PO ONE (23:30)
[2019-03-13 23:33] LABS: BASOPHILS # (AUTO) 0.05 x10^3/uL (0-0.1); BASOPHILS % (AUTO) 1 % (0-1); EOSINOPHILS # (AUTO) 0.16 x10^3/uL (0-0.4); EOSINOPHILS % (AUTO) 3 % (1-7); LYMPHOCYTES # (AUTO) 2.07 x10^3/uL (1-3.4); LYMPHOCYTES % (AUTO) 36 % (22-44); MD NO; MEAN CORPUSCULAR HGB CONC 32.8 g/dL (32.4-35.8); MEAN CORPUSCULAR VOLUME 85.2 fL (80-100); MEAN PLATELET VOLUME 8.3 fL (7.4-10.4); MONOCYTES # (AUTO) 0.56 x10^3/uL (0.2-0.8); MONOCYTES % (AUTO) 10 % (2-9); NEUTROPHILS # (AUTO) 2.89 x10^3/uL (1.8-6.8); NEUTROPHILS % (AUTO) 50 % (42-75); PLATELET COUNT 262 x10^3/uL (130-400); RED BLOOD COUNT 3.93 x10^6/uL (3.82-5.3); RED CELL DISTRIBUTION WIDTH 14.1 % (9.6-15.2)
[2019-03-13] MEDS ORDERED: AMLODIPINE 5 MG TABLET ONE (23:40)
[2019-03-13 23:46] LABS: ALBUMIN 3.5 g/dL (3.4-5.0); ANION GAP 7 mmol/L (5-15); CALCIUM 8.5 mg/dL (8.5-10.1); CHLORIDE 107 mmol/L (98-107); CREATININE 0.82 mg/dL (0.55-1.02)
[2019-03-13 23:50] LABS: TROPONIN I < 0.015 ng/mL (0.000-0.045)
[2019-03-14] MEDS ORDERED: POTASSIUM CHLORIDE 20 MEQ TAB.ER.PRT PO ONE
[2019-03-14] MEDS ORDERED: POTASSIUM CHLORIDE 20 MEQ TAB.ER.PRT ONE (00:04)
--- NOTE | 2019-03-14 00:17 | NUR ---
PT'S BP IMPROVING. UP FOR RECHECK @ 8595.
--- NOTE | 2019-03-14 01:23 | NUR ---
PT UP FOR RECHECK AFTER MAG RESULTED. PT RESTING QUIETLY, NAD.
--- NOTE | 2019-03-14 01:42 | NUR ---
PT DC'D HOME WITH RX X 2 AND UNDERSTANDING OF INSTRUCTIONS. PT CALLING FOR RIDE.
[2019-03-14 01:43] VITALS: BP 166/103
== END 2019-03-14 01:45 | disposition home or self-care (01) ==
LOC: ED 23:39
DX: I10 Essential (primary) hypertension (principal); M79.602 Pain in left arm; M79.604 Pain in right leg; E87.6 Hypokalemia
CPT/HCPCS: 36415; 71045; 80048; 82040; 83735; 84484; 85025; 93005; 99284